=== PATIENT | male | born 1995 | race Caucasian/White ===

== ENCOUNTER 2017-08-05 13:28 | Emergency (ER) | payer OTHER ==
[~2017-08-05] VITALS: Ht 172.7 cm; Wt 76.8 kg
[2017-08-05 13:41] VITALS: TEMP 36.9; Ht 172.7 cm; Wt 76.8 kg
[2017-08-05] MEDS ORDERED: FEXO1TAB46 PO (13:59)
[2017-08-05] MEDS ORDERED: AMOX875T PO (14:01)
[2017-08-05] MEDS ORDERED: DIPHTHERIA/TETANUS/PERTUSSIS 0.5 ML SYR/VIAL IM. ONE (14:15)
[2017-08-05 14:24] VITALS: BP 134/78; PULSE 88; O2SAT 98
--- NOTE | 2017-08-05 20:20 | EMERGENCY ROOM VISIT NOTE ---
History First contact with patient: 13:47 Chief Complaint: BITE Stated Complaint: BITE FROM FERRAL CAT History of Present Illness The patient is a 22 year old male who presents to the Emergency Room with complaints of a cat bite to his right index finger. The injury happened last night around 8 PM. The patient reports that they have a liter of ferile kittens in their garage. They have had no contact with the mother who is outside. This contact restriction has been for the past 2 weeks. The patient reports that he was attempting to move the cat when it bit him. He reports that the litter has been acting normally and appears healthy. Tetanus immunization is up-to-date. The patient is [id number]. The patient denies any significant pain or redness of the finger. Review of Systems 10 system review was performed and was negative except for pertinent positives and negatives as indicated in history of present illness Past Medical/Surgical History Medical Problems: (1) Pneumonia, Organism Nos Surgical Problems: (1) History of adenoidectomy Family History Unremarkable Social History Smoking Status: Never Smoker Alcohol Use: occasionally Marital Status: Housing Status: lives with family Occupation Status: employed Current/Historical Medications Scheduled Amoxicillin & Pot Clavulanate (Augmentin 875-125 mg), 1 TAB PO BID Fexofenadine Hcl (Cindy), 180 MG PO DAILY Physical Exam Vital Signs Date Time Temp Pulse Resp B/P (MAP) Pulse Ox O2 Delivery O2 Flow Rate FiO2 08/05/17 14:24 88 20 134/78 98 Room Air 08/05/17 13:41 36.9 103 16 143/83 99 Room Air Physical Exam CONSTITUTIONAL: Healthy and well nourished. Alert and oriented X 3 with positive affect. HEENT: Normocephalic, atraumatic. Pupils equal, round and reactive. NECK: Full active range of motion without discomfort. MUSCULOSKELETAL: Examination of the right hand shows a puncture wound along the radial dorsal aspect of the index finger proximal phalanx. No erythema, induration, drainage or edema noted. Patient is able to flex and extend the finger without discomfort. Capillary refill is less than 2 seconds. INTEGUMENTARY: No rash or other significant dermatologic conditions noted. NEUROLOGIC: Right index fingertip is sensory intact. Medical Decision & Procedures Medications Administered Medications (Trade) Dose Ordered Sig/Valerie Route Start Time Stop Time Status Last Admin Dose Admin Diphtheria/ Pertussis/Tetanus Vacc (Adacel Inj) 0.5 ml ONCE ONCE IM. 08/05/17 14:15 08/05/17 14:16 DC 08/05/17 14:15 0.5 ML ED Course Patient history and physical exam were performed. Nurse's notes were reviewed. Vital signs were reviewed and were normal. I did explain to the patient began knows that since the cats have been isolated from any outside sources for the past 2 weeks, it is unlikely that they carry rabies. I did suggest further close observation and strict separation from the mother over an additional 2 week period of time. If he starts to notice any change in the health of the cats, the cats should be taken to a hydraulic lift operator, and the patient return to the emergency department immediately for the rabies post exposure prophylaxis series. The patient was provided a prescription for Augmentin for prophylactic infection coverage. The patient was instructed to return to the emergency department mainly for any signs of developing infection. The patient was happy with plan of care, and denied any pain at the time of discharge. Medical Decision Impression Primary Impression: Cat bite of right hand Departure Information Dispostion Home / Self-Care Condition GOOD Prescriptions Amoxicillin & Pot Clavulanate (Augmentin 875-125 mg) 1 Tab Tab 1 TAB PO BID for 5 Days, #10 TAB Prov: Lino Rangel PA 08/05/17 Forms HOME CARE DOCUMENTATION FORM, IMPORTANT VISIT INFORMATION Patient Instructions My [facility] Additional Instructions Complete all Augmentin antibiotics as prescribed. Watch for any signs of developing infection. Ibuprofen or Tylenol as needed for pain. Call your family doctor to advise them that you received an Adacel booster today (tetanus, diphtheria and pertussis immunization). Observe the kittens over the next 10-14 days, watching for any unusual symptoms. Follow-up with your hydraulic lift operator for any concerning symptoms, and return to the emergency department immediately with any further concerns. Problem Qualifiers Primary Impression: Cat bite of right hand Encounter type: initial encounter Qualified Codes: S61.451A - Open bite of right hand, initial encounter; W55.01XA - Bitten by cat, initial encounter
== END 2017-08-05 14:41 | disposition home or self-care (01) ==
LOC: C.EDB 13:30 → C.EDD 14:41
DX: S61.250A Open bite of right index finger without damage to nail, initial encounter (principal); W55.01XA Bitten by cat, initial encounter; Z87.01 Personal history of pneumonia (recurrent); Y92.008 Other place in unspecified non-institutional (private) residence as the place of occurrence of the external cause; Z23 Encounter for immunization